=== PATIENT | female | born 2000 | race Caucasian/White ===

== ENCOUNTER 2024-07-03 14:07 | Emergency (ER) | payer OTHER, SELFPAY ==
[2024-07-03 14:11] VITALS: BP 173/116
--- NOTE | 2024-07-03 16:11 | ED.GENMED ---
History of Present Illness
General
Chief Complaint: Crisis Evaluation
Source: patient
Exam Limitations: none
Time Seen by Provider: 07/03/24 16:03
Nursing documentation reviewed up to this point in time: agreed with
History of Present Illness
History of Present Illness:
Patient to ED for crisis intervention. Reports feeling depressed, has had suicidal thoughts but no plan. States she feels like her symptoms became worse over the past month but admist to feeling depressed long before last month. She describes
feelings of highs and low. SHe admits to a breakup with her partner recently and this has escalated her feelings. Her boss has been concerned about her and suggested she come to crisis today for help. Denies any suicidal thoughts today, these
thoughts come and go. Denies HI. Reports auditory hallincations sometimes at night. SHe states voices are not talking to her, she just hears people talking when there is nobody there.
Past History
Past History
ED Past Medical History: None
ED Past Surgical History: None
Social History
Tobacco: Vaping (Nicotine)
Alcohol: None
Drug: None
Personal: Single
Living: with family (Lives with her grandmother)
Employment: Employed
Review of Systems
Review of Systems
Allergies reviewed?: Yes
All Other Systems: ROS reviewed and negative except as documented in HPI and ROS
Constitutional: Reports no symptoms
EENT: Reports no symptoms
Respiratory: Reports no symptoms
Cardiac: Reports no symptoms
ABD/GI: Reports other (Decreased appitite)
: Reports no symptoms (LMP 07/02/2024)
Musculoskeletal: Reports no symptoms
Skin: Reports no symptoms
Neurological: Reports no symptoms
Psychiatric: Reports depression (Reports suicidal thoughts at times. No plan.)
Phy Exam
General Physical Exam
General Presentation: well appearing and no apparent distress
General age: appears stated age
General Skin: warm and dry
General Habitus: normal
General Mental: alert
General Hydration: appears well hydrated
Cardiovascular Exam
Cardiovascular Exam: regular rate/rhythm and no edema
Pulmonary Exam
Pulmonary Exam: lungs clear and no respiratory distress
Neurological Exam
Neurological Exam: alert, oriented x3, no motor deficits and speech normal
Musculoskeletal Exam
Musculoskeletal Exam: full ROM and neuro vasc intact
Skin Exam
Skin Exam: normal color and warm/dry
Psychiatric Exam
Psychiatric Exam: depressed
Course
Orders/Labs/Results
Orders:
Orders
07/03/24 14:16
1:1 Observation - Suicide/ Violent Behavior As Directed
Crisis Consult Urgent
Reason for Consult: depression
07/03/24 16:10
Urine Drug Abuse Screen Urgent
Test Result ONCE
07/03/24 16:52
Complete Blood Count/With Diff Urgent
Comprehensive Metabolic Panel Urgent
HCG, Serum Qualitative Screen Urgent
TSH Reflex To Free T4 Urgent
Abnormal Lab Results
07/03/24
16:52
WBC 11.7 H 10^3/uL
(4.8-10.8)
MCH 26.9 L pg
(27.0-31.0)
Plt Count 408 H 10^3/uL
(130-400)
Absolute Neuts (auto) 8.0 H 10^3/uL
(1.4-6.5)
Absolute Monos (auto) 1.1 H 10^3/uL
(0.1-0.6)
Lymphocytes % 19.3 L %
(20.5-51.1)
Glucose 103 H mg/dl
(70-99)
07/03/24 16:52
07/03/24 16:52
Vital Signs
Initial and Last Documented VS:
Initial Vital Signs
Temp Pulse Resp BP Pulse Ox
98.4 F 119 18 173/116 100
07/03/24 14:11 07/03/24 14:11 07/03/24 14:11 07/03/24 14:11 07/03/24 14:11
Last Documented Vital Signs
Temp Pulse Resp BP Pulse Ox
98.4 F 119 18 173/116 100
07/03/24 14:11 07/03/24 14:11 07/03/24 14:11 07/03/24 14:11 07/03/24 14:11
*Critical Care Note
Total Time (30-74mins, 75-104mins- exclusive of procedures): Not Applicable
Update Note
Update Note:
Patient evaluated by crisis. Plan is for intense OP therapy. Okay for discharge. Patient denies suicidal thoughts/plan today,no history HI. SHe was given additional resources by crisis. Given instructions s/s to return to ED and she is
agreeable to plan.
ED Attending Note
-
Portions of this chart may have been created with voice recognition software.� Occasional wrong word or��sound alike� substitutions may have occurred due to the inherent limitations of voice recognition software.
Discharge Plan
Departure
Patient Disposition: Home (Routine Discharge)
Date of Disposition: 07/03/24
Time of Disposition: 18:00
Patient with high blood pressure during this ER visit?: No
Condition: Good
Covid-19: Not Applicable
Discharge Problem:
Depression
Instructions: Depression, Adult (DC)
Activity Restrictions/Additional Instructions:
Return to the emergency department immediately for any changes/worsening of your symptoms or for any further concerns.
Interventions
Interventions:
*Risk Screen - Suicide Last Done: 07/03/24 14:11
*General Assessment Last Done: 07/03/24 14:11
*Neglect/Abuse Screening Last Done: 07/03/24 14:11
ED-Psychological Assessment Last Done: 07/03/24 16:50
Discharge Date and Time
Print Language: BHUTANESE
[2024-07-03 16:58] LABS: % Basophils 0.6 % (0-2); % Eosinophils 1.7 % (0-6); % Immature Granulocytes 0.3 % (0-0.5); % Lymphocytes 19.3 % (20.5-51.1); % Monocytes 9.2 % (1.7-9.3); % Neutrophils 68.9 % (42.2-75.2); Absolute Basophils 0.1 10^3/uL (0-0.2); Absolute Eosinophils 0.2 10^3/uL (0-0.7); Absolute Lymphocytes 2.3 10^3/uL (1.2-3.4); Absolute Monocytes 1.1 10^3/uL (0.1-0.6); Hematocrit 39.9 % (37.0-47.0); Hemoglobin 13.2 g/dL (12.0-16.0); Mean Corp Hgb Conc. 33.1 g/dL (33.0-37.0); Mean Corpuscular Hgb 26.9 pg (27.0-31.0); Mean Corpuscular Volume 81.3 fL (81.0-99.0); Mean Platelet Volume 8.9 fL (7.4-10.4); Nucleated Red Blood Cells % 0 %; Platelet Count 408 10^3/uL (130-400); Red Blood Cell Count 4.91 10^6/uL (4.20-5.40); Red Cell Dist. Width 13.2 % (11.5-14.5); White Blood Cell Count 11.7 10^3/uL (4.8-10.8)
[2024-07-03 17:13] LABS: ALT (SGPT) 14 U/L (0-35); AST (SGOT) 20 U/L (14-36); Albumin 4.6 g/dl (3.5-5.0); Alkaline Phosphatase 59 U/L (38-126); Blood Urea Nitrogen 11 mg/dl (7-17); Calcium 9.6 mg/dl (8.4-10.2); Carbon Dioxide 25 mmol/L (22-30); Chloride 107 mmol/L (98-107); Glucose 103 mg/dl (70-99); Potassium 4.3 mmol/L (3.5-5.1); Sodium 140 mmol/L (135-145); Total Bilirubin 0.4 mg/dl (0.2-1.3); Total Protein 7.8 g/dl (6.3-8.2); eGFR > 60.00
[2024-07-03 17:26] LABS: HCG, Serum Qualitative Screen Negative
[2024-07-03 17:44] LABS: TSH Reflex To Free T4 0.52 uIU/ml (0.47-4.68)
== END 2024-07-03 18:48 | disposition home or self-care (01) ==
LOC: EMR 14:07
PROVIDERS: Nurse Practitioner; EMERGENCY PHYSICIAN Emergency Medicine
DX: F32.A Depression, unspecified (principal); F17.290 Nicotine dependence, other tobacco product, uncomplicated
CPT/HCPCS: 99283; 80053; 84443; 84703; 85025